=== PATIENT | male | born 1995 | race Caucasian/White ===

== ENCOUNTER 2018-09-30 20:41 | Emergency (ER) | payer SELFPAY ==
--- NOTE | 2018-09-30 22:53 | EDM.PDOC ---
<Silvia Grove - Last Filed: 09/30/18 23:01> ED HPI GENERAL MEDICAL PROBLEM - General Chief Complaint: Genitourinary Problem Stated Complaint: STD CHECK Time Seen by Provider: 09/30/18 22:35 Source of Information: Reports: Patient History Limitations: Reports: No Limitations - History of Present Illness INITIAL COMMENTS - FREE TEXT/NARRATIVE: 23-year-old male presents to [facility] with chief complaints of dysuria for the past 3 days. Patient does state that he had unprotected sex a few weeks ago and is concerned that he may have an STD. He denies any fever or chills. He denies any discharge or penile lesions. He states that he's been in otherwise good health. Patient does not have a PCP. Onset Date: 09/27/18 Onset Time: 12:00 Duration: Waxing/Waning Location: Reports: Other (Dysuria) Quality: Reports: Burning Severity: Mild Improves with: Reports: None Worsens with: Reports: None Associated Symptoms: Reports: Other (No discharge or penile lesions) Penis Pain Score (Numeric/FACES): 4 - Related Data Allergies Allergy/AdvReac Type Severity Reaction Status Date / Time No Known Allergies Allergy Verified 09/30/18 21:31 Home Meds: Home Meds . [No Known Home Meds] 09/30/18 [History] Past Medical History - Past Surgical History HEENT Surgical History: Reports: Eye Surgery Social & Family History - Tobacco Use Smoking Status *Q: Never Smoker Second Hand Smoke Exposure: No - Caffeine Use Caffeine Use: Reports: Energy Drinks - Recreational Drug Use Recreational Drug Use: Yes Drug Use in Last 12 Months: Yes Recreational Drug Type: Reports: Marijuana/Hashish Recreational Drug Use Frequency: Daily ED ROS GENERAL - Review of Systems Review Of Systems: ROS reveals no pertinent complaints other than HPI. Constitutional: Denies: Fever, Chills GI/Abdominal: Reports: No Symptoms. Denies: Abdominal Pain : Reports: Dysuria. Denies: Discharge, Flank Pain Musculoskeletal: Reports: No Symptoms Skin: Reports: No Symptoms Neurological: Reports: No Symptoms ED EXAM, GI/ABD - Physical Exam Exam: See Below Exam Limited By: No Limitations General Appearance: Alert, WD/WN, No Apparent Distress GI/Abdominal Exam: Normal Bowel Sounds, Soft, Non-Tender, No Organomegaly, No Distention, No Abnormal Bruit, No Mass, Pelvis Stable. No: Mass (Male) Exam: No Hernia, Normal Inspection, Circumcised, Cremasteric Reflex. No: Scrotal Swelling, Scrotum Tenderness (L), Scrotum Tenderness (R), Testicular Mass, Testicular Tenderness (L), Testicular Tenderness (R), Urethral Discharge Back Exam: Normal Inspection, Full Range of Motion Neurological: Alert, Oriented, CN II-XII Intact, Normal Cognition, Normal Gait, Normal Reflexes, No Motor/Sensory Deficits Psychiatric: Normal Affect, Normal Mood Skin Exam: Warm, Dry, Intact, Normal Color, No Rash Lymphatic: No Adenopathy Course - Vital Signs Last Recorded V/S: Last Vital Signs Temp 36.6 C 09/30/18 21:32 Pulse 81 09/30/18 21:32 Resp 16 09/30/18 21:32 BP 110/89 09/30/18 21:32 Pulse Ox 97 09/30/18 21:32 - Orders/Labs/Meds Orders: Active Orders 24 hr Category Date Time Status GC/CHLAMYDIA BY PCR [MOLEC] Stat Lab 09/30/18 22:14 Received Meds: Medications Discontinued Medications Generic Name Dose Route Start Last Admin Trade Name Markosq PRN Reason Stop Dose Admin Azithromycin 1,000 mg 09/30/18 22:59 09/30/18 23:38 Zithromax PO 09/30/18 23:00 1,000 mg ONETIME ONE Administration Ceftriaxone Sodium 250 mg 09/30/18 22:59 09/30/18 23:37 Rocephin IM 09/30/18 23:00 250 mg ONETIME ONE Administration - Re-Assessments/Exams Free Text/Narrative Re-Assessment/Exam: 09/30/18 22:52 Gonorrhea and chlamydia urinalysis pending. I have will transfer care to Dr. Morel pending lab results. Departure - Departure Time of Disposition: 23:00 Disposition: Home, Self-Care 01 Clinical Impression: Dysuria - Discharge Information *PRESCRIPTION DRUG MONITORING PROGRAM REVIEWED*: Not Applicable *COPY OF PRESCRIPTION DRUG MONITORING REPORT IN PATIENT NAOMI: Not Applicable Instructions: Sexually Transmitted Disease, [id number], Dysuria Referrals: PCP,None [Primary Care Provider] - Forms: ED Department Discharge Additional Instructions: You have been diagnosed with a possible STD. He has received Rocephin and azithromycin for her symptoms. I recommend that you practice safe sex. Return to the emergency for any new or acutely worsening symptoms. <Dale Greene - Last Filed: 09/30/18 23:43> Course - Re-Assessments/Exams Free Text/Narrative Re-Assessment/Exam: 09/30/18 23:43 I was present in the ED, but did not personally examine the patient, I did, however, discussed the case with PERFORMING ARTIST [place], and agree with the plan of care.
[2018-09-30] MEDS ORDERED: cefTRIAXone 250 MG Vial IM ONE (22:59)
[2018-09-30] MEDS ORDERED: Azithromycin 250 MG Tab PO ONE (22:59)
[2018-10-01 00:09] LABS: C. TRACHOMATIS BY PCR DETECTED; N. GONORRHOEAE BY PCR NOT DETECTED
== END 2018-09-30 23:43 | disposition home or self-care (01) ==
LOC: JD.ED 20:41
DX: R30.0 Dysuria (principal)
CPT/HCPCS: 87491; 87591; 96372; 99283; A9270; J0696